=== PATIENT | female | born 1960 | race Caucasian/White ===

== ENCOUNTER 2018-09-28 21:43 | Emergency (ER) | payer OTHER, MEDICAID ==
[2018-09-28] MEDS ORDERED: Ketorolac 60 MG/2 ML SDV IM ONE (21:50)
--- NOTE | 2018-09-28 21:55 | EDM.PDOC ---
ED HPI GENERAL MEDICAL PROBLEM - General Stated Complaint: RT KNEE PAIN Time Seen by Provider: 09/28/18 21:50 Source of Information: Reports: Patient, Family (son) History Limitations: Reports: Physical Impairment - History of Present Illness INITIAL COMMENTS - FREE TEXT/NARRATIVE: 58 y.o.w.f s/p shoulder and knee replacements in 2005, came with her son to the ed after she fell over a rug onto her right shoulder, elbow, wrist and right knee. {t was able to had FROM of wrist, elbow and shoulder, with pain, however. She was not able to bear weight onto her right lower leg due to severe knee pain. Pt arrived with a wheel chair in the ED. No N/V/D no Dizziness no SOB or chest pain. No other acute med issues. BP 155/64 RR 18 Pulse ox 100% on RA Pulse 74 Temp 36.6 Onset Date: 09/28/18 Onset Time: 20:00 Duration: Hour(s): Location: Reports: Upper Extremity, Right, Lower Extremity, Right Quality: Reports: Dull, Pressure Severity: Moderate Improves with: Reports: Rest Worsens with: Reports: Movement Context: Reports: Trauma Associated Symptoms: Reports: No Other Symptoms Right wrist, shoulder, and knee Pain Score (Numeric/FACES): 8 - Related Data Allergies Allergy/AdvReac Type Severity Reaction Status Date / Time azithromycin [From Zithromax] Allergy Severe Hives Verified 09/28/18 21:59 Penicillins AdvReac gi upset Verified 09/28/18 21:59 tetanus toxoid, adsorbed AdvReac pain, not Verified 09/28/18 21:59 at injection site Home Meds: Home Meds Albuterol Sulfate [Proair Hfa] 2 puff PO QID PRN 03/27/16 [History] Ascorbate Calcium [Vitamin C] 500 mg PO DAILY 03/27/16 [History] Aspirin 81 mg PO DAILY 03/27/16 [History] Beclomethasone Dipropionate [Qvar 80 Mcg] 2 puff PO DAILY PRN 03/27/16 [History] Black Cohosh 540 mg PO ASDIRECTED 03/27/16 [History] Ca Carb & Gluc/Mag Ox & Gluc [Calcium Magnesium Caplet] 3 tab PO DAILY 03/27/16 [History] Cyclobenzaprine [Flexeril] 5 mg PO TID PRN 03/27/16 [History] Fish Oil/[place]-3 Fatty Acids [Fish Oil 1,000 MG] 1 cap PO DAILY 03/27/16 [ History] Folic Acid 1 mg PO DAILY 03/27/16 [History] Furosemide 40 mg PO DAILY 03/27/16 [History] Glucosamine/Msm/Chondroitin A [Glucosamine Chondroit MSM Tab] 1 tab PO DAILY [History] Ibuprofen 200 mg PO ASDIRECTED PRN 03/27/16 [History] Levothyroxine [Synthroid] 50 mcg PO ACBREAKFAST 03/27/16 [History] Loratadine [Claritin] 10 mg PO DAILY 03/27/16 [History] Melatonin 3 mg PO BEDTIME 03/27/16 [History] Multivitamin [Multivitamins] 1 each PO DAILY 03/27/16 [History] Omeprazole Magnesium [Prilosec Otc] 20 mg PO DAILY 03/27/16 [History] Spironolactone [Aldactone] 25 mg PO DAILY 03/27/16 [History] Ubidecarenone [Coq-10] 50 mg PO DAILY 03/27/16 [History] Vitamin A 10,000 unit PO DAILY 03/27/16 [History] Vitamin B Complex [B Complex] 1 each PO DAILY 03/27/16 [History] Vitamin E 100 units PO DAILY 03/27/16 [History] Zinc 50 mg PO DAILY 03/27/16 [History] Acetaminophen/HYDROcodone [[place] 325-5 MG] 2 tab PO Q4H PRN #30 tablet 03/28/16 [Rx] Potassium 99 mg PO DAILY 03/28/16 [History] Tumeric 500 mg PO DAILY 03/28/16 [History] Past Medical History Other HEENT History: esophageal reflux,migraines Other Cardiovascular History: edema, chest pain Respiratory History: Reports: Asthma, COPD Other Gastrointestinal History: special screening for malignanat neoplasm, colon 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: Musculoskeletal History: Reports: Arthritis, Osteoarthritis, Osteoporosis Other Musculoskeletal History: myalgia,myositis Endocrine/Metabolic History: Reports: Hypothyroidism, Obesity/BMI 30+ Other Endocrine/Metabolic History: impaired glucose tolerance Dermatologic History: Reports: Other (See Below) Other Dermatologic History: CHRONIC RASH UNDER LEFT ARMPIT AREA - Infectious Disease History Infectious Disease History: Reports: Chicken Pox, Mumps - Past Surgical History HEENT Surgical History: Reports: Tonsillectomy GI Surgical History: Reports: Cholecystectomy Other Female Surgeries/Procedures: ovary detortion Musculoskeletal Surgical History: Reports: Arthroscopic Knee, Shoulder Surgery Social & Family History - Caffeine Use Caffeine Use: Reports: None Review of Systems - Review of Systems Review Of Systems: See Below Constitutional: Reports: No Symptoms Eyes: Reports: No Symptoms Ears: Reports: No Symptoms Nose: Reports: No Symptoms Mouth/Throat: Reports: No Symptoms Respiratory: Reports: No Symptoms Cardiovascular: Reports: No Symptoms GI/Abdominal: Reports: No Symptoms Genitourinary: Reports: No Symptoms Musculoskeletal: Reports: Joint Pain (shoulder,wrist and knee pain) Skin: Reports: No Symptoms Neurological: Reports: No Symptoms Psychiatric: Reports: No Symptoms ED EXAM, GENERAL - Physical Exam Exam: See Below Exam Limited By: No Limitations General Appearance: Alert, WD/WN, Moderate Distress, Obese Eye Exam: Bilateral Eye: Normal Inspection Ears: Normal External Exam, Normal Canal Ear Exam: Bilateral Ear: Auricle Normal Nose: Normal Inspection, Normal Mucosa, No Blood Throat/Mouth: Normal Lips, Normal Voice, No Airway Compromise Head: Atraumatic, Normocephalic Neck: Normal Inspection, Supple, Non-Tender Respiratory/Chest: No Respiratory Distress, Lungs Clear, Normal Breath Sounds, Chest Non-Tender Cardiovascular: Normal Peripheral Pulses, Regular Rate, Rhythm Peripheral Pulses: 2+: Brachial (R) GI/Abdominal: Normal Bowel Sounds, Soft, Non-Tender, No Abnormal Bruit (Female) Exam: Deferred Rectal (Female) Exam: Deferred Back Exam: Normal Inspection, Full Range of Motion Extremities: Normal Inspection, Normal Range of Motion (with some discomfort), No Pedal Edema, Normal Capillary Refill Neurological: Alert, Oriented, CN II-XII Intact, Normal Cognition, Abnormal Gait (due to right knee pain) Psychiatric: Normal Affect, Normal Mood Skin Exam: Warm, Dry, Intact, Normal Color, No Rash Lymphatic: No Adenopathy Course - Vital Signs Text/Narrative:: 58 y.o.w.f s/p shoulder and knee replacements in 2005, came with her son to the ed after she fell over a rug onto her right shoulder, elbow, wrist and right knee. {t was able to had FROM of wrist, elbow and shoulder, with pain, however. She was not able to bear weight onto her right lower leg due to severe knee pain. Pt arrived with a wheel chair in the ED. No N/V/D no Dizziness no SOB or chest pain. No other acute med issues. BP 155/64 RR 18 Pulse ox 100% on RA Pulse 74 Temp 36.6 PE: WNWD W F S/P fall Imaging: X ray of the right shoulder, elbow and knee were all neg, official report is pending Impression: Right Shoulder, elbow, wrist and knee sprain after a fall Tx: Toradol, ICE Reexam: Improved, pt was able to ambulate on D/C Plan: D/C with instructions Last Recorded V/S: Last Vital Signs Temp 36.6 C 09/28/18 22:30 Pulse 72 09/28/18 22:30 Resp 18 09/28/18 22:30 BP 155/64 H 09/28/18 22:30 Pulse Ox 100 09/28/18 22:30 - Orders/Labs/Meds Orders: Active Orders 24 hr Category Date Time Status Cooling Warming Measures [RC] ASDIRECTED Care 09/28/18 21:50 Active Knee 3V Rt [CR] Stat Exams 09/28/18 21:50 Taken Shoulder Comp Rt [CR] Stat Exams 09/28/18 21:50 Taken Wrist Comp Min 3V Rt [CR] Stat Exams 09/28/18 21:50 Taken Ice Therapy [OM.PC] Routine Oth 09/28/18 21:50 Ordered Meds: Medications Discontinued Medications Generic Name Dose Route Start Last Admin Trade Name Amol PRN Reason Stop Dose Admin Ketorolac Tromethamine 60 mg 09/28/18 21:50 09/28/18 21:55 Toradol IM 09/28/18 21:51 60 mg ONETIME ONE Administration Departure - Departure Time of Disposition: 23:28 Disposition: Home, Self-Care 01 Condition: Good Clinical Impression: Joint ache Qualifiers: Joint pain location: shoulder Laterality: right Qualified Code(s): M25.511 - Pain in right shoulder Knee sprain Qualifiers: Encounter type: initial encounter - Discharge Information Instructions: Knee Pain, Adult Referrals: Khadijah Frank NP [Primary Care Provider] - Forms: ED Return to Work/School Form Additional Instructions: Ice, rest and elevation, Please take Ibuprofen as needed, please f/u with your PMD, come back if your symptoms get worse acutely - My Orders Last 24 Hours: My Active Orders 09/28/18 21:50 Cooling Warming Measures [RC] ASDIRECTED Knee 3V Rt [CR] Stat Shoulder Comp Rt [CR] Stat Wrist Comp Min 3V Rt [CR] Stat Ice Therapy [OM.PC] Routine - Assessment/Plan Last 24 Hours: My Active Orders 09/28/18 21:50 Cooling Warming Measures [RC] ASDIRECTED Knee 3V Rt [CR] Stat Shoulder Comp Rt [CR] Stat Wrist Comp Min 3V Rt [CR] Stat Ice Therapy [OM.PC] Routine
[2018-09-28 22:50] VITALS: BP 155/64; PULSE 72
== END 2018-09-28 23:45 | disposition home or self-care (01) ==
LOC: FB.ED 21:43
DX: S43.401A Unspecified sprain of right shoulder joint, initial encounter (principal); S53.401A Unspecified sprain of right elbow, initial encounter; S83.91XA Sprain of unspecified site of right knee, initial encounter; S63.501A Unspecified sprain of right wrist, initial encounter; J44.9 Chronic obstructive pulmonary disease, unspecified; E03.9 Hypothyroidism, unspecified; Z88.7 Allergy status to serum and vaccine; Z88.1 Allergy status to other antibiotic agents; Z88.0 Allergy status to penicillin; Z79.899 Other long term (current) drug therapy; Z79.82 Long term (current) use of aspirin; Z99.3 Dependence on wheelchair; W18.39XA Other fall on same level, initial encounter
CPT/HCPCS: 73030; 73110; 73562; 96372; 99283; J1885

== ENCOUNTER 2020-05-04 12:09 | Emergency (ER) | payer MEDICAID, OTHER ==
[2020-05-04] MEDS ORDERED: Sodium Chloride 0.9% 10 ML Syringe FLUSH PRN (12:20)
[2020-05-04] MEDS ORDERED: Furosemide 40 MG/4 ML VIAL IVPUSH ONE (12:45)
[2020-05-04] MEDS ORDERED: Metolazone 5 MG Tab PO STA (12:45)
[2020-05-04] MEDS ORDERED: Morphine 4 MG/ML VIAL IVPUSH STA (12:57)
[2020-05-04] MEDS ORDERED: Iopamidol 755 Mg/ML 100 ML Bottle IV ONE (13:34)
--- NOTE | 2020-05-04 13:52 | EDM.PDOC ---
ED HPI GENERAL MEDICAL PROBLEM - General Chief Complaint: Respiratory Problem Stated Complaint: dyspnea Time Seen by Provider: 05/04/20 12:55 Source of Information: Reports: Patient History Limitations: Reports: No Limitations - History of Present Illness INITIAL COMMENTS - FREE TEXT/NARRATIVE: Patient presented to the ED because of dyspnea for 3 weeks which is getting worse. Normally she can walk without being short of breath but now she can only walk several feet. For the past 2 weeks she has been coughing greenish phlegm. There is no associated fever, chills, chest pain. 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 (see below) Other Treatments RADIOTELEGRAPH OPERATOR: neb and solumedrol in clinic - Related Data Allergies Allergy/AdvReac Type Severity Reaction Status Date / Time azithromycin [From Zithromax] Allergy Severe Hives Verified 05/04/20 13:12 Penicillins AdvReac gi upset Verified 05/04/20 13:12 tetanus toxoid, adsorbed AdvReac pain, not Verified 05/04/20 13:12 at injection site Home Meds: Home Meds Albuterol Sulfate [Proair Hfa] 2 puff PO QID PRN 03/27/16 [History] Ascorbate Calcium [Vitamin C] 500 mg PO DAILY 03/27/16 [History] Aspirin 81 mg PO DAILY 03/27/16 [History] Beclomethasone Dipropionate [Qvar 80 Mcg] 2 puff PO DAILY PRN 03/27/16 [History] Black Cohosh 540 mg PO ASDIRECTED 03/27/16 [History] Ca Carb & Gluc/Mag Ox & Gluc [Calcium Magnesium Caplet] 3 tab PO DAILY 03/27/16 [History] Cyclobenzaprine [Flexeril] 5 mg PO TID PRN 03/27/16 [History] Fish Oil/[place]-3 Fatty Acids [Fish Oil 1,000 MG] 1 cap PO DAILY 03/27/16 [History] Folic Acid 1 mg PO DAILY 03/27/16 [History] Furosemide 40 mg PO DAILY 03/27/16 [History] Glucosamine/Msm/Chondroitin A [Glucosamine Chondroit MSM Tab] 1 tab PO DAILY 03/27/16 [History] Ibuprofen 200 mg PO ASDIRECTED PRN 03/27/16 [History] Levothyroxine [Synthroid] 50 mcg PO ACBREAKFAST 03/27/16 [History] Loratadine [Claritin] 10 mg PO DAILY 03/27/16 [History] Melatonin 3 mg PO BEDTIME 03/27/16 [History] Multivitamin [Multivitamins] 1 each PO DAILY 03/27/16 [History] Omeprazole Magnesium [Prilosec Otc] 20 mg PO DAILY 03/27/16 [History] Spironolactone [Aldactone] 25 mg PO DAILY 03/27/16 [History] Ubidecarenone [Coq-10] 50 mg PO DAILY 03/27/16 [History] Vitamin A 10,000 unit PO DAILY 03/27/16 [History] Vitamin B Complex [B Complex] 1 each PO DAILY 03/27/16 [History] Vitamin E 100 units PO DAILY 03/27/16 [History] Zinc 50 mg PO DAILY 03/27/16 [History] Acetaminophen/HYDROcodone [[place] 325-5 MG] 2 tab PO Q4H PRN #30 tablet 03/28/16 [Rx] Potassium 99 mg PO DAILY 03/28/16 [History] Tumeric 500 mg PO DAILY 03/28/16 [History] Azithromycin [Zithromax] 250 mg PO DAILY #6 tablet 05/04/20 [Rx] metOLazone [Zaroxolyn] 5 mg PO QAM #3 tab 05/04/20 [Rx] predniSONE [Prednisone] 40 mg PO DAILY #30 tablet 05/04/20 [Rx] Past Medical History Other HEENT History: esophageal reflux,migraines Other Cardiovascular History: edema, chest pain Respiratory History: Reports: Asthma, COPD Other Gastrointestinal History: special screening for malignanat neoplasm, colon 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: Musculoskeletal History: Reports: Arthritis, Osteoarthritis, Osteoporosis Other Musculoskeletal History: myalgia,myositis Endocrine/Metabolic History: Reports: Hypothyroidism, Obesity/BMI 30+ Other Endocrine/Metabolic History: impaired glucose tolerance Dermatologic History: Reports: Other (See Below) Other Dermatologic History: CHRONIC RASH UNDER LEFT ARMPIT AREA - Infectious Disease History Infectious Disease History: Reports: Chicken Pox, Mumps - Past Surgical History HEENT Surgical History: Reports: Tonsillectomy GI Surgical History: Reports: Cholecystectomy Other Female Surgeries/Procedures: ovary detortion Musculoskeletal Surgical History: Reports: Arthroscopic Knee, Shoulder Surgery Social & Family History - Tobacco Use Tobacco Use Status *Q: Never Tobacco User - Caffeine Use Caffeine Use: Reports: None - Recreational Drug Use Recreational Drug Use: No ED ROS GENERAL - Review of Systems Review Of Systems: See Below Constitutional: Reports: No Symptoms HEENT: Reports: No Symptoms Respiratory: Reports: Shortness of Breath, Wheezing Cardiovascular: Reports: No Symptoms Endocrine: Reports: No Symptoms GI/Abdominal: Reports: No Symptoms : Reports: No Symptoms Musculoskeletal: Reports: No Symptoms Skin: Reports: No Symptoms Neurological: Reports: No Symptoms Psychiatric: Reports: No Symptoms ED EXAM, GENERAL - Physical Exam Exam: See Below Exam Limited By: No Limitations General Appearance: Alert, No Apparent Distress Eye Exam: Bilateral Eye: PERRL Ears: Normal External Exam, Normal Canal Nose: Normal Inspection, Normal Mucosa, No Blood Throat/Mouth: Normal Inspection, Normal Lips, Normal Teeth Head: Atraumatic, Normocephalic Neck: Normal Inspection, Supple, Non-Tender, Full Range of Motion Respiratory/Chest: No Respiratory Distress, Crackles Cardiovascular: Normal Peripheral Pulses, Regular Rate, Rhythm, No Edema, No Gallop, No JVD, No Murmur GI/Abdominal: Normal Bowel Sounds, Soft, Non-Tender, No Organomegaly Back Exam: Normal Inspection, Full Range of Motion Extremities: Normal Inspection, Normal Range of Motion, Non-Tender, No Pedal Edema, Normal Capillary Refill Neurological: Alert, Oriented, CN II-XII Intact, Normal Cognition, Normal Gait, Normal Reflexes, No Motor/Sensory Deficits Psychiatric: Normal Affect Skin Exam: Warm Course - Vital Signs Text/Narrative:: Labs/EKG/CXR/Chest CT was discussed with patient Lasix 40 mg IV x1 Zaroxolyn 5 mg PO x1 Morphine 4 mg IV x1 Last Recorded V/S: Last Vital Signs Temp Pulse 72 05/04/20 12:52 Resp BP 165/64 H 05/04/20 12:52 Pulse Ox 100 05/04/20 12:52 - Orders/Labs/Meds Orders: Active Orders 24 hr Category Date Time Status EKG Documentation Completion [RC] ASDIRECTED Care 05/04/20 12:22 Active Ang Chest [CT] Stat Exams 05/04/20 13:29 Taken Chest 1V Frontal [CR] Stat Exams 05/04/20 12:20 Taken Sodium Chloride 0.9% [Saline Flush] Med 05/04/20 12:20 Active 10 ml FLUSH ASDIRECTED PRN Saline Lock Insert [OM.PC] Routine Oth 05/04/20 12:20 Ordered EKG 12 Lead [EK] Routine Ther 05/04/20 12:20 Ordered Medication Orders Sodium Chloride (Sodium Chloride 0.9% 10 Ml Syringe) 10 ml FLUSH ASDIRECTED PRN PRN Reason: Keep Vein Open Last Admin: 05/04/20 13:06 Dose: 10 ml Documented by: GIANNI Labs: Laboratory Tests 05/04/20 05/04/20 05/04/20 Range/Units 12:55 12:55 12:55 WBC (3.0-10.3) x10-3/uL RBC (3.60-5.20) x10(6)uL Hgb (11.4-15.5) g/dL Hct (34.2-48.2) % MCV (76.7-100.5) fL MCH (23.9-33.9) pg MCHC (31.9-34.8) g/dL RDW (12.3-16.5) % Plt Count (151-488) x10(3)uL MPV (7.1-12.4) fL Neut % (Auto) (30.8-76.2) % Lymph % (Auto) (18.4-52.1) % [place] % (Auto) (4.4-15.7) % Eos % (Auto) (0.6-8.1) % Baso % (Auto) (0.2-1.5) % Neut # (Auto) (1.5-6.3) x10-3/uL Lymph # (Auto) (1.0-4.4) x10-3/uL [place] # (Auto) (0.3-1.0) x10-3/uL Eos # (Auto) (0.0-0.8) x10-3/uL Baso # (Auto) (0.0-0.1) x10-3/uL D-Dimer, Quantitative 0.90 H (0.0-0.59) mg/LFEU Sodium 139 (135-145) mmol/L Potassium 4.4 (3.5-5.3) mmol/L Chloride 100 (100-110) mmol/L Carbon Dioxide 27 (21-32) mmol/L BUN 28 H (7-18) mg/dL Creatinine 0.8 (0.55-1.02) mg/dL Est Cr Clr Drug Dosing TNP Estimated GFR (MDRD) > 60 (>60) BUN/Creatinine Ratio 35.0 H (9-20) Glucose 141 H (80-116) mg/dL Calcium 9.7 (8.6-10.2) mg/dL Total Bilirubin 0.7 (0.1-1.3) mg/dL AST 26 H (5-25) IU/L ALT 34 (12-36) U/L Alkaline Phosphatase 81 (56-112) IU/L Troponin I 7.2 (4.0-60.3) pg/mL NT-Pro-B Natriuret Pep 108 (<=125) pg/mL Total Protein 7.4 (6.0-8.0) g/dL Albumin 3.7 (3.2-4.6) g/dL Globulin 3.7 g/dL Albumin/Globulin Ratio 1.0 TSH, Ultra Sensitive (0.36-3.74) IU/mL 05/04/20 05/04/20 Range/Units 12:55 12:55 WBC 9.7 (3.0-10.3) x10-3/uL RBC 4.32 (3.60-5.20) x10(6)uL Hgb 12.8 (11.4-15.5) g/dL Hct 38.5 (34.2-48.2) % MCV 89.3 (76.7-100.5) fL MCH 29.5 (23.9-33.9) pg MCHC 33.1 (31.9-34.8) g/dL RDW 13.9 (12.3-16.5) % Plt Count 217 (151-488) x10(3)uL MPV 8.7 (7.1-12.4) fL Neut % (Auto) 72.2 (30.8-76.2) % Lymph % (Auto) 17.7 L (18.4-52.1) % [place] % (Auto) 7.5 (4.4-15.7) % Eos % (Auto) 2.1 (0.6-8.1) % Baso % (Auto) 0.5 (0.2-1.5) % Neut # (Auto) 7.0 H (1.5-6.3) x10-3/uL Lymph # (Auto) 1.7 (1.0-4.4) x10-3/uL [place] # (Auto) 0.7 (0.3-1.0) x10-3/uL Eos # (Auto) 0.2 (0.0-0.8) x10-3/uL Baso # (Auto) 0.0 (0.0-0.1) x10-3/uL D-Dimer, Quantitative (0.0-0.59) mg/LFEU Sodium (135-145) mmol/L Potassium (3.5-5.3) mmol/L Chloride (100-110) mmol/L Carbon Dioxide (21-32) mmol/L BUN (7-18) mg/dL Creatinine (0.55-1.02) mg/dL Est Cr Clr Drug Dosing Estimated GFR (MDRD) (>60) BUN/Creatinine Ratio (9-20) Glucose (80-116) mg/dL Calcium (8.6-10.2) mg/dL Total Bilirubin (0.1-1.3) mg/dL AST (5-25) IU/L ALT (12-36) U/L Alkaline Phosphatase (56-112) IU/L Troponin I (4.0-60.3) pg/mL NT-Pro-B Natriuret Pep (<=125) pg/mL Total Protein (6.0-8.0) g/dL Albumin (3.2-4.6) g/dL Globulin g/dL Albumin/Globulin Ratio TSH, Ultra Sensitive 3.79 H (0.36-3.74) IU/mL Meds: Medications Generic Name Dose Route Start Last Admin Trade Name Freq PRN Reason Stop Dose Admin Sodium Chloride 10 ml 05/04/20 12:20 05/04/20 13:06 Sodium Chloride 0.9% 10 Ml Syringe FLUSH 10 ml ASDIRECTED PRN Administration Keep Vein Open Discontinued Medications Generic Name Dose Route Start Last Admin Trade Name Freq PRN Reason Stop Dose Admin Furosemide 40 mg 05/04/20 12:45 05/04/20 13:05 Furosemide 40 Mg/4 Ml Vial IVPUSH 05/04/20 12:46 40 mg NOW ONE Administration Iopamidol 100 ml 05/04/20 13:34 05/04/20 14:12 Iopamidol 755 Mg/Ml 100 Ml Bottle IV 05/04/20 13:35 100 ml . DIRECTED ONE Administration Metolazone 5 mg 05/04/20 12:45 05/04/20 13:06 Metolazone 5 Mg Tab PO 05/04/20 12:46 5 mg NOW STA Administration Morphine Sulfate 4 mg 05/04/20 12:57 05/04/20 13:06 Morphine 4 Mg/Ml Vial IVPUSH 05/04/20 12:58 4 mg NOW STA Administration Departure - Departure Time of Disposition: 14:40 Disposition: Home, Self-Care 01 Condition: Good Clinical Impression: COPD (chronic obstructive pulmonary disease), Peripheral edema - Discharge Information Prescriptions: predniSONE [Prednisone] 40 mg PO DAILY #30 tablet metOLazone [Zaroxolyn] 5 mg PO QAM #3 tab Azithromycin [Zithromax] 250 mg PO DAILY #6 tablet Forms: ED Department Discharge Additional Instructions: Please read discharge instructions on COPD and peripheral edema Take your lasix/fursosemide,spironolactone every morning Zaroxolyn 5 mg every morning for 3 days to get rid of the the fluid build up in your body Follow up with your doctor this week or next week. You might need an echocardiogram to confirm if you have congestive heart failure or not [place] as directed for 5 days for your COPD flare up Prednisone 20 mg, 2 tablets every morning for 5 days(COPD flare up) Sepsis Event Note (ED) - Focused Exam Vital Signs: Vital Signs Pulse BP Pulse Ox 05/04/20 12:52 72 165/64 H 100 - My Orders Last 24 Hours: My Active Orders 05/04/20 12:20 Chest 1V Frontal [CR] Stat Sodium Chloride 0.9% [Saline Flush] 10 ml FLUSH ASDIRECTED PRN Saline Lock Insert [OM.PC] Routine EKG 12 Lead [EK] Routine 05/04/20 12:22 EKG Documentation Completion [RC] ASDIRECTED 05/04/20 13:29 Ang Chest [CT] Stat - Assessment/Plan Last 24 Hours: My Active Orders 05/04/20 12:20 Chest 1V Frontal [CR] Stat Sodium Chloride 0.9% [Saline Flush] 10 ml FLUSH ASDIRECTED PRN Saline Lock Insert [OM.PC] Routine EKG 12 Lead [EK] Routine 05/04/20 12:22 EKG Documentation Completion [RC] ASDIRECTED 05/04/20 13:29 Ang Chest [CT] Stat
--- NOTE | 2020-05-04 15:24 | CT ---
INDICATION: Elevated D-dimer of 0.9, dyspnea. COMPUTERIZED TOMOGRAPHY ANGIOGRAPHY OF THE CHEST WITH CONTRAST: Spiral 1.25 mm axial sections were obtained through the chest with 100 mL Isovue-370 at 3.5 mL per second with sagittal and coronal reconstructions and axial reconstructions 05/04/20 and compared with 01/14/13. Total exam DLP was 951.48 mGy-cm. Hard beam artifact from bilateral total shoulder arthroplasties is noted. Minimal calcification is noted at the arch of the aorta. The heart appears to be mildly enlarged or at least at the upper limits of normal in size. No significant size pericardial effusion was seen. No mediastinal mass was identified. The upper abdomen included on the examination revealed no definite acute abnormalities. Renal cortical scarring is noted bilaterally. Cholecystectomy is noted. Apparently due to patient's anxiety, there was less than ideal concentration of contrast in the pulmonary arteries. No evidence of pulmonary emboli could be identified. The interstitium appears to be prominent and along with the prominent heart raises question of CHF with interstitial lung edema. No definite active infiltrate or effusion was otherwise identified. There is a moderately severe dextroconcave rotoscoliosis at the thoracolumbar - upper lumbar spine with compensatory dextroconvex scoliosis of the thoracic spine. Moderate hypertrophic degenerative changes are noted in the upper and middle thoracic spine with more prominent bridging hyperostotic changes at the lower thoracic spine. Some disk disease is present in mid to lower levels. IMPRESSION: 1. No evidence of PE. 2. Findings suggest CHF with mild interstitial lung edema - correlate clinically. 3. ASHD with cardiomegaly is likely. 4. Rotoscoliosis thoracolumbar spine, dextroconvex scoliosis thoracic spine, osteoarthritis thoracic spine. 5. Bilateral total shoulder arthroplasties. 6. Mild renal cortical scarring is noted. 7. Post cholecystectomy. Report was called to Dr. Guy at 1429 hours. [facility]
--- NOTE | 2020-05-04 15:28 | CR ---
INDICATION: Dyspnea. CHEST ONE VIEW: AP upright portable view of the chest was obtained 05/04/20 and compared with 05/02/19 and revealed the heart to appear enlarged, but certainly increased somewhat by the relatively poor inspiration and AP positioning. There is, however, increased prominence of the pulmonary vasculature in the upper lung schaefer and interstitial markings suggesting CHF and interstitial lung edema of mild degree in this patient with exogenous obesity. A definite active infiltrate or effusion was not identified. Bilateral total shoulder arthroplasties are noted. IMPRESSION: ASHD, probable cardiomegaly with CHF and interstitial lung edema of mild degree. Report was called to Dr. Guy at 1429 hours. [facility]
[2020-05-04 15:34] VITALS: BP 147/50; PULSE 73
== END 2020-05-04 15:23 | disposition home or self-care (01) ==
LOC: FB.ED 12:09
DX: J44.9 Chronic obstructive pulmonary disease, unspecified (principal); R60.0 Localized edema; M19.90 Unspecified osteoarthritis, unspecified site; E03.9 Hypothyroidism, unspecified; E66.9 Obesity, unspecified; Z88.1 Allergy status to other antibiotic agents; Z88.0 Allergy status to penicillin; Z88.7 Allergy status to serum and vaccine; Z79.82 Long term (current) use of aspirin
CPT/HCPCS: 36415; 71045; 71275; 80053; 83880; 84443; 84484; 85025; 85379; 93005; 96374; 96375; 99285; A9270; J1940; J2270; Q9967

== ENCOUNTER 2021-06-29 23:28 | Emergency (ER) | payer MEDICAID ==
[2021-06-29] MEDS ORDERED: methylPREDNISolone Sodium Succinate 125 MG/2 ML SDV IM STA (23:58)
[2021-06-29] MEDS ORDERED: Albuterol/Ipratropium 3.0-0.5 MG/3 ML Neb Soln NEB STA (23:58)
[2021-06-30 00:52] VITALS: BP 155/81; PULSE 80
== END 2021-06-30 00:15 | disposition home or self-care (01) ==
LOC: FB.ED 23:28
DX: J44.1 Chronic obstructive pulmonary disease with (acute) exacerbation (principal); M19.90 Unspecified osteoarthritis, unspecified site; E03.9 Hypothyroidism, unspecified; E66.9 Obesity, unspecified; Z68.30 Body mass index [BMI] 30.0-30.9, adult; Z88.1 Allergy status to other antibiotic agents; Z88.7 Allergy status to serum and vaccine; Z88.0 Allergy status to penicillin; Z79.82 Long term (current) use of aspirin; Z79.84 Long term (current) use of oral hypoglycemic drugs; Z79.899 Other long term (current) drug therapy
CPT/HCPCS: 94640; 96372; 99282; 99284; J2930; J7620

== ENCOUNTER 2022-11-03 20:37 | Emergency (ER) | payer MEDICAID ==
[2022-11-03] MEDS ORDERED: Cephalexin 500 MG Cap PO ONE (21:22)
[2022-11-03 23:10] VITALS: BP 141/84; PULSE 89
== END 2022-11-03 21:37 | disposition home or self-care (01) ==
LOC: FB.ED 20:37
DX: L60.0 Ingrowing nail (principal); L03.031 Cellulitis of right toe; I11.0 Hypertensive heart disease with heart failure; I50.9 Heart failure, unspecified; E78.00 Pure hypercholesterolemia, unspecified; J44.9 Chronic obstructive pulmonary disease, unspecified; K21.9 Gastro-esophageal reflux disease without esophagitis; M19.90 Unspecified osteoarthritis, unspecified site; E03.9 Hypothyroidism, unspecified; E66.9 Obesity, unspecified; Z68.43 Body mass index [BMI] 50.0-59.9, adult; Z88.1 Allergy status to other antibiotic agents; Z88.0 Allergy status to penicillin; Z88.7 Allergy status to serum and vaccine; Z79.899 Other long term (current) drug therapy; Z79.82 Long term (current) use of aspirin
CPT/HCPCS: 99283; A9270

== ENCOUNTER 2024-10-19 13:22 | Emergency (ER) | payer MEDICARE, MEDICAID ==
[2024-10-19 19:11] VITALS: BP 132/87; PULSE 96
== END 2024-10-19 15:54 | disposition home or self-care (01) ==
LOC: FB.ED 13:22
DX: S80.01XA Contusion of right knee, initial encounter (principal); I11.0 Hypertensive heart disease with heart failure; I50.9 Heart failure, unspecified; E78.00 Pure hypercholesterolemia, unspecified; J44.9 Chronic obstructive pulmonary disease, unspecified; K21.9 Gastro-esophageal reflux disease without esophagitis; E03.9 Hypothyroidism, unspecified; Z88.0 Allergy status to penicillin; Z88.1 Allergy status to other antibiotic agents; Z88.7 Allergy status to serum and vaccine; Z79.51 Long term (current) use of inhaled steroids; Z79.4 Long term (current) use of insulin; Z79.890 Hormone replacement therapy; Z79.899 Other long term (current) drug therapy; Z79.82 Long term (current) use of aspirin; W18.39XA Other fall on same level, initial encounter; Y93.89 Activity, other specified
CPT/HCPCS: 73562-RT; 99283